=== PATIENT | female | born 1985 | race Caucasian/White ===

== ENCOUNTER 2016-09-24 18:23 | Inpatient (IN) ==
[2016-09-24] MEDS ORDERED: Famotidine 20 MG/2 ML VIAL IVP PRN (18:39)
[2016-09-24] MEDS ORDERED: Naloxone 0.4 MG/ML INJ IVP PRN (18:39)
[2016-09-24] MEDS ORDERED: Ringers Solution, Lactated 1,000 ML IVC SCH (18:45)
--- NOTE | 2016-09-24 18:45 | OB/GYN History & Physical ---
Date of Encounter: 09/24/16 Time of Encounter: 18:38 Assessment and Plan (1) Spontaneous onset of labor Current visit: Yes Status: Acute Jeaneth and baby are doing well. Will admit and anticipate History of Present Illness Chief complaint: Labor HPI: Ms. Merida is a 31 year old , 1, 0 (H/o miscarriage) female who is at 39 weeks, 5 days gestation who presents to the labor and delivery for contractions which started around 1 AM this morning. She states she was checked in the office earlier today and was dilated to about a 6 with 90% effacement. She denies complications with this . She is on omeprazole for GERD prior to and during . She denies any current complaints other than being uncomfortable with her contractions. She does plan on getting an epidural Past Med Surg Social Fam HX - Past Medical History Medical history: GERD, other (rapid heart rate) Psychiatric history: no psych history - Past Surgical History Surgical History: other (Laparoscopy with adhesiolysis) - Social History Smoking Status: Never smoker Alcohol use: none Drug use: none Medications and Allergies Omeprazole [PriLOSEC] 40 mg PO QAM 09/22/15 [History] Ste600/Iron Fumarate/FA/Dss [ 19 Tablet] 1 tab PO QAM 09/22/15 [History] Allergies No Known Allergies Allergy (Verified 09/22/15 13:55) Review of System OB - Constitutional Constitutional ROS IM: other (HEENT: Eyes: No visual loss, blurred vision, double vision or yellow sclerae. Ears, Nose, Throat: No hearing loss, sneezing, congestion, runny nose or sore throat. CARDIOVASCULAR: No chest pain, chest pressure or chest discomfort. No palpitations or edema. RESPIRATORY: No shortness of breath, cough or sputum. GASTROINTESTINAL: No anorexia, nausea, vomiting. GENITOURINARY: No urinary frequency, burning on urination, dysuria or hematuria. No change in bowel or bladder control. ) Exam - Comments Comments: GENERAL: Well-developed, well-nourished in mild distress due to active labor. Patient is alert and oriented x3. HEART: S1 and S2 normal. Regular rate and rhythm. No murmurs, rub, or gallops. LUNGS: Clear to auscultation bilaterally. No wheezing, rales or rhonchi. ABDOMEN: No localized tenderness MUSCULOSKELETAL : No deformity. There was full range of motion in all the extremities. Muscle strength 5/5 throughout. PERIPHERAL VASCULAR: Radial and pedal pulses are 2/4 bilaterally. No cyanosis, clubbing, or edema SKIN: No rashes, ulceration or induration present. Results Result Diagrams: 09/24/16 18:38 All other labs normal.
[2016-09-24 18:52] LABS: Basophils % 0.3 %; Eosinophils # 0.1 K/mcL (0.0-0.6); Eosinophils % 1.2 %; Hematocrit 41.4 % (35.3-44.9); Hemoglobin 14.2 g/dL (11.5-15.4); Immature Granulocytes % 0.4 % (0-4); Lymphocytes # 2.3 K/mcL (0.6-4.6); Lymphocytes % 19.6 %; Mean Corpuscular HGB Conc 34.3 g/dL (31.6-35.5); Mean Corpuscular Hemoglobin 29.8 pg (28.0-33.3); Mean Corpuscular Volume 86.8 fL (83.0-100.0); Mean Platelet Volume 11.4 fL (9.4-12.4); Monocytes # 0.7 K/mcL (0.0-1.3); Monocytes % 6.4 %; Neutrophils # 8.4 K/mcL (1.6-8.9); Platelet Count 208 K/mcL (140-400); Red Blood Count 4.77 M/mcL (3.82-4.97); Red Cell Distribution Width 13.3 % (11.5-14.5); Segmented Neutrophils % 72.1 %
--- NOTE | 2016-09-24 18:56 | Anesthesia Evaluation PreOp ---
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 History: Denies Any Significant HX Other Medical History: Denies Any Significant HX Anesthesia History: No Prior Anesthetic Complications, Past Anesthesia Alcohol Use: none Drug use: none Medications and Allergies Metoprolol [Lopressor] 12.5 mg PO QAM 09/22/15 [History] Omeprazole [PriLOSEC] 40 mg PO QAM 09/22/15 [History] [id number]/Iron Fumarate/FA/Dss [ 19 Tablet] 1 tab PO QAM 09/22/15 [History] TraZODone 25 - 50 mg PO HS PRN 09/22/15 [History] Allergies No Known Allergies Allergy (Verified 09/22/15 13:55) Anesthesia Results - Labs 09/24/16 18:38 Anesthesia Exam - HEENT Pupil (Motor): Pupils equal Mallampati: II Teeth: Normal Oral Opening: Greater than 3 - FIRE SPRINKLER [employer]PARATUS INSPECTOR LOC: Oriented FIRE [employer]INKLER APPARATUS INSPECTOR Motor: Normal RUE, Normal LUE, Normal RLE, Normal LLE, Normal Face FIRE SPRINKLER APPARATUS INSPECTOR Sensory: Normal: RUE, LUE, RLE, LLE, Face - Cardiac Rhythm: Regular Murmur: None - Pulmonary Breath Sounds: bilateral Clear Respiratory Effort: Symmetrical Anesthesia Assess/Plan ASA Score: 2 Modified Willard Scale for Level of Consciousness: Cooperative, oriented, and tranquil Anesthetic Plan: General, Regional Monitoring Plan: Standard Monitors
[2016-09-24] MEDS ORDERED: Epidural Premix (fent/bupiv) 110 ML EP ONE (18:58)
--- NOTE | 2016-09-24 20:07 | Anesthesia Procedures ---
Date of Encounter: 09/24/16 Time of Encounter: 19:09 Procedures: Anesthesia - Epidural/Spinal Patient ID/Chart reviewed: Yes Patient examined: Yes OB Eval: Gestational age: term OB Eval: : 1 OB Eval: Hx Para: 0 OB Eval: Contractions: Non-stressed pattern Consent Obtained: Yes Supplemental Oxygen: None/Room Air Site Prep: Aseptic Technique, Sterile prep and drape, 0.5% Chlorhexidine/Alcohol Patient position: upright Local Anesthetic: Lidocaine 1% Amount of Local Anesthetic used: 2 Touhy Needle Gauge: 18 Touhy Needle Depth (cm): 7 Catheter Depth at Skin (cm): 11 Test Dose (1.5% Lido + Epi): Volume given (mls): 3 Test Dose Result: Negative Loading Dose: Other: 12 from solution Loading Dose Administered: Thru Catheter Infusion Med: 0.125% Bupivacaine w/ 2 mcg/ml Fentanyl Infusion Rate (mls/hr): [address]: Tegaderm, Tape Interspace Used: L3-L4 Loss of Resistance (ENEDELIA): Yes (saline) Blood: No CSF: No Paresthesia: No
[2016-09-24] MEDS ORDERED: Ondansetron 4 MG/2 ML VIAL IVP PRN (20:32)
[2016-09-24] MEDS ORDERED: Ondansetron 4 MG/2 ML VIAL ONE (20:34)
--- NOTE | 2016-09-25 | OB Labor Progress Note ---
Date of Encounter: 09/24/16 Time of Encounter: 23:58 Labor Progress Note - Subjective Subjective: Comfortable with epidural. Not feeling uc's - Cervix Cervix: /-1 - Heart Tones Heart Tones: RNST - [place]: uc's q 60 sec - Interventions Interventions: AROM clear - Plan Plan: Expect
[2016-09-25] MEDS ORDERED: Epidural Premix (fent/bupiv) 110 ML EP ONE ×2 (01:06→08:06)
[2016-09-25] MEDS ORDERED: Acetaminophen 325 MG TABLET PO ONE (03:53)
--- NOTE | 2016-09-25 04:21 | OB Labor Progress Note ---
Date of Encounter: 09/25/16 Time of Encounter: 04:19 Labor Progress Note - Subjective Subjective: Pt c/o nausea, otherwise not much pressure. She does c/o LEYVA - Cervix Cervix: rim/c/0 - Heart Tones Heart Tones: RNST - Interventions Interventions: Will give zofran and tylenol - Plan Plan: Expect
[2016-09-25] MEDS ORDERED: Oxytocin 20 units/ LR 1000 mL 20 UNIT/1,000 ML BAG IVC ONE ×2 (05:52→13:02)
[2016-09-25] MEDS ORDERED: Oxytocin 20 units/ LR 1000 mL 20 UNIT/1,000 ML BAG IVC SCH (07:06)
--- NOTE | 2016-09-25 10:30 | OB/GYN Procedure Note ---
Delivery - Delivery Date: 09/25/16 Provider: Stefania Vega Intrapartum events: none Delivery induction: none Delivery augmentation: pitocin Delivery monitor: external FHT, external uterine Anesthesia: epidural Estimated Blood Loss: 200 - (s) Infant A Delivery Date: 09/25/16 Delivery Time: 10:13 Presentation: vertex Position: RAUL Route of delivery: Gender: Female Viability: Viable Pounds: 8 Ounces: 13 at 1 minute: 6 at 5 mins: 9 Shoulder Dystocia: not encountered Specimens collected: cord blood Placenta: spontaneous, uterine exploration Cord: 3 umbilical vessels - Repair Episiotomy: none Laceration Description: Perineal - 2nd Degree, Labial - Complications Delivery complications: none Delivery comments: The patient was complete and pushing with spontaneous vaginal delivery in RAUL position of a live female weighing 8 lbs. 13 oz. with Apgars of 6 at 1 minute and 9 at 5 [address] was [address] on the maternal abdomen. Cord was clamped and cut after delay. Cord blood was obtained. Placenta was delivered spontaneous and intact. Uterus was explored and no retained products of conception were palpated. No cervical or vaginal lacerations present. Bilateral superficial labial lacerations were hemostatic and not repaired. There was a second-degree vaginal/perineal laceration which was repaired with 3- 0 Vicryl in the usual fashion. Estimated blood loss 200 mL, complications none. Mother and recovering in stable condition in the LDR. - Disposition Mom disposition: stable in LDR [place] disposition: stable in LDR
[2016-09-25] MEDS ORDERED: Measles/Mumps/Rubella Vacc 0.5 ML VIAL SQ PRN (13:02)
[2016-09-25] MEDS ORDERED: Ibuprofen 600 MG TABLET PO PRN (13:02)
[2016-09-25] MEDS ORDERED: *HR* HYDROcodone/Acet 5/325 mg TABLET PO PRN (13:02)
[2016-09-25] MEDS ORDERED: Oxytocin 20 units/ LR 1000 mL 20 UNIT/1,000 ML BAG IV SCH (13:02)
[2016-09-26 05:04] LABS: Basophils # 0.1 K/mcL (0.0-0.2); Basophils % 0.5 %; Eosinophils # 0.2 K/mcL (0.0-0.6); Eosinophils % 1.6 %; Hematocrit 33.6 % (35.3-44.9); Immature Granulocytes % 0.5 % (0-4); Lymphocytes # 2.4 K/mcL (0.6-4.6); Mean Corpuscular HGB Conc 34.2 g/dL (31.6-35.5); Mean Corpuscular Hemoglobin 30.4 pg (28.0-33.3); Mean Corpuscular Volume 88.9 fL (83.0-100.0); Mean Platelet Volume 11.5 fL (9.4-12.4); Monocytes # 0.9 K/mcL (0.0-1.3); Monocytes % 6.6 %; Neutrophils # 9.7 K/mcL (1.6-8.9); Platelet Count 154 K/mcL (140-400); Red Blood Count 3.78 M/mcL (3.82-4.97); Red Cell Distribution Width 13.6 % (11.5-14.5); Segmented Neutrophils % 72.8 %
[2016-09-26 05:08] LABS: Hemoglobin 11.5 g/dL (11.5-15.4)
[2016-09-26] MEDS ORDERED: Prenatal Vit/FA 1 EACH TABLET PO SCH (09:00)
[2016-09-26 09:38] VITALS: BP 104/74
--- NOTE | 2016-09-26 09:39 | Discharge Summary ---
Date of Encounter: 09/26/16 Time of Encounter: 09:37 - Discharge Diagnosis (1) Status post vaginal delivery Priority: Primary Status: Acute Comments: Continue routine care discharge home today follow up in [address] Hammer (2) Breast feeding status of mother Priority: Secondary Status: Acute Comments: support PRN - Discharge Medications Prescriptions: Ibuprofen [Motrin] 600 mg PO Q6HR PRN #60 tablet PRN Reason: Cramping Home Medications: Yxu428/Iron Fumarate/FA/Dss [ 19 Tablet] 1 tab PO QAM 09/22/15 [History] Ibuprofen [Motrin] 600 mg PO Q6HR PRN #60 tablet 09/26/16 [Rx] Allergies/Adverse Reactions: Allergies No Known Allergies Allergy (Verified 09/22/15 13:55) Data Procedures and tests throughout hospitalization: Laboratory Tests 09/24/16 09/26/16 18:38 04:52 WBC 11.6 H 13.3 H RBC 4.77 3.78 L Hgb 14.2 11.5 D Hct 41.4 33.6 L MCV 86.8 88.9 MCH 29.8 30.4 MCHC 34.3 34.2 RDW 13.3 13.6 Plt Count 208 154 MPV 11.4 11.5 Immature Gran % 0.4 0.5 Seg Neutrophils % 72.1 72.8 Lymphocytes % 19.6 18.0 Monocytes % 6.4 6.6 Eosinophils % 1.2 1.6 Basophils % 0.3 0.5 Neutrophils # 8.4 9.7 H Lymphocytes # 2.3 2.4 Monocytes # 0.7 0.9 Eosinophils # 0.1 0.2 Basophils # 0.0 0.1 Labs on day of discharge: Labs from last 24 hours 09/26/16 04:52 WBC 13.3 H RBC 3.78 L Hgb 11.5 D Hct 33.6 L MCV 88.9 MCH 30.4 MCHC 34.2 RDW 13.6 Plt Count 154 MPV 11.5 Immature Gran % 0.5 Seg Neutrophils % 72.8 Lymphocytes % 18.0 Monocytes % 6.6 Eosinophils % 1.6 Basophils % 0.5 Neutrophils # 9.7 H Lymphocytes # 2.4 Monocytes # 0.9 Eosinophils # 0.2 Basophils # 0.1 Date of admission: 09/24/16 19:41 Primary care physician: PCP NO Consults: 09/25/16 13:02 Consult to Appeals Board Referee [CONS] Routine Comment: Vaginal delivery, consult needed Discharging clinician: Nannette Cavazos Anticipated date of discharge: 09/26/16 - Patient Status Disposition: Home, Self-Care Condition: Good Functional capacity at discharge: independent ambulation - Discharge Instructions Follow Up With: Candelaria Hammer DO [Partnered Physician] - - Diet and Activity Activity: increase activity as tolerated Diet: regular diet Hospital Course Reason for admission: active labor Delivery: Episiotomy: none Laceration: 2nd degree Other procedures: none complications: none Discharge diagnosis: IUP at term delivered baby: female (breast feeding) Time Attestation: Total time spent providing and/or coordinating discharge services: Time Spent: Less than 30 minutes Exam - Constitutional Vitals: Temp Pulse Resp BP Pulse Ox 97.6 F 92 14 111/77 97 09/26/16 03:55 09/26/16 03:55 09/26/16 03:55 09/26/16 03:55 09/26/16 03:55 General appearance IM: A&O X 3, pleasant, answers questions appropriately - Respiratory Respiratory exam: Present: CTAB - Cardiovascular Cardiovascular exam IM: Present: RRR, +S1, +S2 - GI/Abdominal GI/Abdominal exam IM: normal bowel sounds Incision: normal, dry, intact - Uterine Tone: Firm Uterus Position: 1 Finger Below Umbilicus, Midline - Extremities Exam Extremities exam IM: Present: full ROM, normal capillary refill, normal inspection - Neurological Exam Neurological exam: alert, oriented X3, reflexes normal
== END 2016-09-26 13:54 | disposition home or self-care (01) | DRG 775 ==
LOC: 1NENULAB → 1NENUOBS 09-25 12:55
PROVIDERS: ADMIT Obstetrics & Gynecology; ATTEND Obstetrics & Gynecology